=== PATIENT | female | born 1990 | race Caucasian/White ===

== ENCOUNTER 2018-07-13 00:18 | Emergency (ER) | payer MEDICAID ==
[~2018-07-13] VITALS: Ht 160 cm; Wt 65.9 kg
[2018-07-13 00:48] VITALS: BP 100/55
== END 2018-07-13 00:49 ==
LOC: ER 00:19
DX: Z02.89 Encounter for other administrative examinations (principal); V49.88XA Car occupant (driver) (passenger) injured in other specified transport accidents, initial encounter; Y93.89 Activity, other specified; Y92.413 State road as the place of occurrence of the external cause; Y99.9 Unspecified external cause status
CPT/HCPCS: 99283

== ENCOUNTER 2024-01-25 15:45 | Emergency (ER) | payer MEDICAID ==
[2024-01-25 16:04] VITALS: BP 142/84; PULSE 88; RESP 19; O2SAT 98
[2024-01-25] MEDS ORDERED: CEPH-585 PO (16:11)
[2024-01-25] MEDS ORDERED: SULF1TAB49 PO (16:11)
[2024-01-25 16:25] VITALS: TEMP 98.3
== END 2024-01-25 16:27 | disposition home or self-care (01) ==
LOC: ER 15:45
DX: L03.011 Cellulitis of right finger (principal); L03.116 Cellulitis of left lower limb
CPT/HCPCS: 99283